=== PATIENT | female | born 1990 | race Caucasian/White ===

== ENCOUNTER 2020-03-09 11:12 | Emergency (ER) | payer OTHER, SELFPAY ==
--- NOTE | ~2020-03-09 | XR_ITS ---
EXAMINATION: XR foot LT min 3V DATE: 03/09/2020 11:33 INDICATION: Left foot injury and pain. TECHNIQUE: 4 views of left foot were obtained. COMPARISON: None. FINDINGS: Bone alignment is normal. No fracture. There is mild osteoarthritis of first metatarsophala ngeal joint. IMPRESSION: 1. Mild osteoarthritis of first metatarsophalangeal joint. Reviewed, dictated and finalized at location A.
--- NOTE | ~2020-03-09 | XR_ITS ---
EXAMINATION: XR ankle LT min 3V DATE: 03/09/2020 11:33 INDICATION: Left ankle injury. TECHNIQUE: 4 views of left ankle were obtained. COMPARISON: None. FINDINGS: Bone alignment is normal. There is a nondisplaced transverse fracture of distal tip of late ral malleolus. Joint spaces are normal. There is ankle soft tissue swelling. IMPRESSION: 1. Nondisplaced transverse fracture of distal tip of lateral malleolus. Reviewed, dictated and finalized at location A.
--- NOTE | 2020-03-09 11:16 | ED.GENADULT ---
HPI - General Adult General Chief complaint: Extremity Injury, Lower Stated complaint: lt ankle injury Time Seen by Provider: 03/09/20 11:16 Source: patient Mode of arrival: ambulatory Limitations: no limitations History of Present Illness HPI narrative: 29-year-old female patient presents to the [facility] with complaints of left ankle pain that started about 9 AM this morning. Patient states that she was playing in a basketball tournament and states that she stepped on her left ankle and rolled it. Patient states she is having most of the pain on the lateral side of the left foot and ankle. Patient states that she did ice it this morning at 9 AM after the injury first occurred. Denies taking any medications for pain so far. Patient does arrive with crutches and has not been bearing weight to the left foot or ankle. Related Data Home Medications Medication Instructions Recorded Confirmed No Home Medications 03/09/20 03/09/20 Allergies Allergy/AdvReac Type Severity Reaction Status Date / Time amphetamine Allergy Unknown Nausea Verified 03/09/20 11:25 cephalexin Allergy Unknown Skin Verified 03/09/20 11:25 Reaction Sulfa (Sulfonamide Allergy Unknown upset Verified 03/09/20 11:25 Antibiotics) stomach tramadol Allergy Unknown Nausea Verified 03/09/20 11:25 Review of Systems Review of Systems: Narrative: CONSTITUTIONAL: Denies fever, chills, or sweats. EYES: Denies visual changes, redness, or discharge. ENT: Denies rhinorrhea, congestion, sore throat, or otalgia. CARDIOVASCULAR: Denies chest pain, palpitations, or edema. RESPIRATORY: Denies cough or dyspnea. GASTROINTESTINAL: Denies abdominal pain, nausea, vomiting, or diarrhea. GENITOURINARY: Denies dysuria or hematuria. SKIN: Denies rash or itching. MUSCULOSKELETAL: Denies back pain, joint pain, or myalgia. Positive left foot/ankle pain NEUROLOGIC: Denies headache, numbness, or weakness. PSYCHIATRIC: Denies anxiety or depression. [facility] Family History Family History Sibling Depression Grandparent Hypertension Other Family history of malignant neoplasm of ovary Social History Social History Smoking status: Never smoker Alcohol intake: current Comments At the time of my signature I agree with nursing past medical history, surgical, social, and family history. There is no relevant family history pertinent to the presenting complaint. Exam Narrative: Exam Narrative: GENERAL: Well-appearing, well-nourished, and in no acute distress. HEAD: Normocephalic, atraumatic. EYES: PERRLA and EOMI. ENT: Nares clear, no rhinorrhea or epistaxis. Mucous membranes moist. NECK: Supple. No lymphadenopathy CHEST: Clear to auscultation. No respiratory distress. HEART: Regular rate and rhythm. No murmur heard. Normal peripheral pulses. ABDOMEN: Soft, nontender, nondistended, normal active bowel sounds. EXTREMITIES: Patient unable to bear weight and ambulate on left foot. No surface trauma, ecchymosis, erythema, lesions, ulcers or break in skin integrity. Patient's foot does feel cold to the touch as compared to the right foot. The coolness extends all the way up to the ankle. Patient does have tenderness noted to the lateral malleolus area. No tenderness to the medial malleolus patient does complain of some numbness and tingling to the third fourth and fifth toe area. The L foot is without obvious asymmetry or deformity when compared to the R foot. No bony step-off, tender to palpation over the third fourth and fifth toes, pain to the midfoot and lateral side of the foot no pain to palpation of the hindfoot or sole. Pain with plantar/dorsiflexion, inversion/eversion. Distal motor status are intact. Cap refill to the toes are about 3 to 4 seconds which is delayed compared to the right foot. SKIN: Warm, dry, no rash. NEURO: No focal deficits. Alert and oriented x
[2020-03-09 11:25] VITALS: BP 145/88; RESP 16; TEMP 36.6; O2SAT 100
== END 2020-03-09 11:54 | disposition short-term general hospital (02) ==
PROVIDERS: Emergency Provider Nurse Practitioner Family; PCP Family Medicine
DX: S82.65XA Nondisplaced fracture of lateral malleolus of left fibula, initial encounter for closed fracture (principal); X50.9XXA Other and unspecified overexertion or strenuous movements or postures, initial encounter; Y93.67 Activity, basketball
CPT/HCPCS: 73610; 73630; 99214; G0463

== ENCOUNTER 2020-03-09 12:13 | Emergency (ER) | payer OTHER, SELFPAY ==
[2020-03-09 12:17] VITALS: BP 127/78; PULSE 83; RESP 16; TEMP 36.4; O2SAT 98
--- NOTE | 2020-03-09 13:49 | ED.LOWEXIN ---
HPI - Extremity Injury (Lower) General Chief Complaint: Extremity Injury, Lower Stated Complaint: sent by after breaking foot, numbness present Time Seen by Provider: 03/09/20 13:38 History of Present Illness HPI Narrative: Sent from urgent care for evaluation of ankle fracture. She twisted her left ankle this morning while playing basketball. She was seen at urgent care and found to have a small non-displaced fracture to the distal tip of the lateral malleolus. They sent her here because they were concerned about purple discoloration of the foot. This has resolved. No numbness, weakness, wound. She does have mild pain over the lateral malleolus at rest. Worse with bearing weight. Related Data Allergies Allergy/AdvReac Type Severity Reaction Status Date / Time amphetamine Allergy Unknown Nausea Verified 03/09/20 14:57 cephalexin Allergy Unknown Skin Verified 03/09/20 14:57 Reaction Sulfa (Sulfonamide Allergy Unknown upset Verified 03/09/20 14:57 Antibiotics) stomach tramadol Allergy Unknown Nausea Verified 03/09/20 14:57 Review of Systems Review of Systems: All systems reviewed & are unremarkable except as noted in HPI and below PMFSH Social History Social History Smoking status: Never smoker Alcohol intake: current Gender identity (if verbalized by the patient): Female Sexual Orientation (if Verbalized by the Patient): Straight or Heterosexual Exam Const: General: healthy appearing, no acute distress and alert Nutritional Appearance: well nourished Orientation/consciousness: patient oriented x3 HENMT: Head: normal to inspection Cardio: Other: bilateral DP 1+ and symetrical capillary refill < 2 seconds bilaterally Skin: Other: bruising over left lateral malleolus Neuro: General: patient oriented x3 and moves all extremities Speech: normal speech Other: Motor and sensory intact Extrem: Other: Tenderness and swelling over left lateral malleolus and lateral foot Course Vital Signs Vital signs: Vital Signs Temperature 36.4 C 03/09/20 12:17 Pulse Rate 83 03/09/20 12:17 Respiratory Rate 16 03/09/20 12:17 Blood Pressure 127/78 03/09/20 12:17 Pulse Oximetry 98 03/09/20 12:17 Temperature 37.0 C 03/09/20 15:10 Pulse Rate 86 09/28/20 15:10 Respiratory Rate 18 03/09/20 15:10 Blood Pressure 143/79 H 03/09/20 15:10 Pulse Oximetry 99 03/09/20 15:10 Procedures Orthopedic Splinting/Casting Injury #1: Side: left Lower Extremity Injury Location: ankle Lower Extremity Immobilizer: posterior splint Splint: customized in ED OCL: short leg Pre-Procedure Neuro Vascular Exam: normal Post-Procedure Neuro Vascular Exam: normal MDM - Extremity Injury (Lower) MDM Narrative Medical decision making narrative: She has a minor nondisplaced ankle fracture. I will place her in a splint and have her follow-up Differential Diagnosis Differential diagnosis: Likely ankle fracture Discharge Plan Discharge Clinical Impression: Ankle fracture, left Qualifiers: Encounter type: initial encounter Fracture type: closed Qualified Code(s): S82.892A - Other fracture of left lower leg, initial encounter for closed fracture Patient Disposition: Home, Self-Care Condition: Stable Instructions: Ankle Fracture (ED) Prescriptions: New hydrocodone-acetaminophen [Letcher] 5-325 mg tablet 1 tablet PO Q4H PRN (Reason: pain) Qty: 5 RF: 0 Follow-up/Referrals: Rafat Partida MD [Primary Care Provider] - Ricardo Jimenez MD [Physician] - Stand Alone Forms: Work/School Release IP Discharge Date/Time: 03/09/20 15:11
[2020-03-09 14:48] VITALS: BP 143/79; PULSE 77; RESP 18; TEMP 37; O2SAT 99
[2020-03-09 15:10] VITALS: BP 143/79; PULSE 86; RESP 18; TEMP 37; O2SAT 99
== END 2020-03-09 15:11 | disposition home or self-care (01) ==
PROVIDERS: Emergency Provider Emergency Medicine; PCP Family Medicine
DX: S82.65XA Nondisplaced fracture of lateral malleolus of left fibula, initial encounter for closed fracture (principal); X50.9XXA Other and unspecified overexertion or strenuous movements or postures, initial encounter; Y93.67 Activity, basketball
CPT/HCPCS: 29515; 99283